=== PATIENT | female | born 1950 | race Caucasian/White ===

== ENCOUNTER → 2017-12-04 | Outpatient (CLI) | payer BC ==
[2017-12-04 12:13] LABS: HEMATOCRIT 47.9 % (36.0-47.0); HEMOGLOBIN 16.1 g/dl (12.0-16.0); MEAN CORPUSCULAR HEMOGLOBIN 32.1 pg (27.0-33.0); MEAN CORPUSCULAR HGB CONC 33.6 g/dl (32.0-36.5); MEAN CORPUSCULAR VOLUME 95.6 fl (80.0-96.0); PLATELET COUNT, AUTOMATED 329 10^3/uL (150-450); RED BLOOD COUNT 5.01 10^6/uL (4.00-5.40); WHITE BLOOD COUNT 9.4 10^3/uL (4.0-10.0)
[2017-12-04 12:25] LABS: AMORPHOUS SEDIMENT MODERATE (NEGATIVE); APPEARANCE, URINE TURBID (CLEAR); BACTERIA, URINE AUTO NEGATIVE (NEGATIVE); BILIRUBIN, URINE AUTO NEGATIVE (NEGATIVE); BLOOD, URINE BLOOD NEGATIVE (NEGATIVE); COLOR, URINE YELLOW (YELLOW); GLUCOSE, URINE (UA) AUTO NEGATIVE (NEGATIVE); KETONE, URINE AUTO NEGATIVE (NEGATIVE); LEUKOCYTE ESTERASE, URINE AUTO 1+ (NEGATIVE); MUCUS, URINE SMALL (NEGATIVE); NITRITE, URINE AUTO NEGATIVE (NEGATIVE); PROTEIN, URINE AUTO NEGATIVE (NEGATIVE); RBC, URINE AUTO 0 /HPF (0-3); SPECIFIC GRAVITY URINE AUTO 1.021 (1.002-1.035); SQUAMOUS EPITHELIAL CELL UR AU 5 /HPF (0-6); UROBILINOGEN, URINE AUTO 0.2 mg/dL (0.0-2.0); WBC, URINE AUTO 0 /HPF (0-3)
[2017-12-04 12:32] LABS: TOTAL 25(OH) VITAMIN D 27.4 NG/ML (30.0-100.0); VITAMIN B12 LEVEL 546 PG/ML (247-911)
[2017-12-04 13:15] LABS: ALBUMIN 4.2 GM/DL (3.2-5.2); ALBUMIN/GLOBULIN RATIO 1.17 (1.00-1.93); ALKALINE PHOSPHATASE 114 U/L (45-117); ALT/SGPT 47 U/L (12-78); ANION GAP 14 MEQ/L (8-16); AST/SGOT 34 U/L (7-37); BILIRUBIN,DIRECT 0.2 MG/DL (0.0-0.2); BILIRUBIN,TOTAL 0.7 MG/DL (0.2-1.0); BLOOD UREA NITROGEN 16 MG/DL (7-18); CALCIUM LEVEL 9.4 MG/DL (8.8-10.2); CARBON DIOXIDE LEVEL 21 MEQ/L (21-32); CHLORIDE LEVEL 102 MEQ/L (98-107); CHOLESTEROL LEVEL 196 MG/DL (<200); CHOLESTEROL RISK RATIO 3.213 (<5); CREATININE FOR GFR 0.76 MG/DL (0.55-1.30); FREE T4 0.98 NG/DL (0.76-1.46); GLOMERULAR FILTRATION RATE > 60.0 (>45); GLUCOSE, FASTING 115 MG/DL (70-100); HDL CHOLESTEROL 61 MG/DL (>40); LDL CHOLESTEROL 80.2 MG/DL (<100); NON-HDL-C 135 MG/DL; POTASSIUM SERUM 4.2 MEQ/L (3.5-5.1); SODIUM LEVEL 137 MEQ/L (136-145); TOTAL PROTEIN 7.8 GM/DL (6.4-8.2); TRIGLYCERIDES LEVEL 274 MG/DL (<150)
== END ==
LOC: M WUC 09:34
DX: M60.80 Other myositis, unspecified site (principal); K44.9 Diaphragmatic hernia without obstruction or gangrene; G47.00 Insomnia, unspecified; E78.5 Hyperlipidemia, unspecified; R32 Unspecified urinary incontinence; E55.9 Vitamin D deficiency, unspecified; R07.9 Chest pain, unspecified

== ENCOUNTER → 2018-06-05 | Outpatient (CLI) | payer BC | LOC: M EKG 12:20 | DX: R07.9 Chest pain, unspecified (principal); I15.8 Other secondary hypertension | CPT/HCPCS: 93005 ==

== ENCOUNTER 2018-08-05 11:05 | Emergency (ER) | payer MEDICARE, BC ==
[2018-08-05] MEDS: NS 1,000 ML IV (13:17)
[2018-08-05] MEDS: PANTOPRAZOLE 40MG INJ (PROTONIX) (C9113) IV (13:18)
[2018-08-05] MEDS: METOCLOPRAMIDE INJ 10MG/2ML VIAL (J2765) IV (13:20)
[2018-08-05] MEDS: GASTROGRAFIN SOLUTION 30ML PO ×2 (13:29→14:08)
[2018-08-05 13:32] LABS: BASO # 0.1 10^3/uL (0.0-0.2); BASO % 0.5 % (0.0-1.0); EOS # 0.1 10^3/uL (0.0-0.50); EOS % 0.5 % (0.0-3.0); HEMATOCRIT 42.2 % (36.0-47.0); HEMOGLOBIN 14.6 g/dl (12.0-15.5); IMMATURE GRANULOCYTE % 0.5 % (0-3.0); LYMPH # 3.7 10^3/uL (1.5-4.5); LYMPH % 28.6 % (24.0-44.0); MEAN CORPUSCULAR HEMOGLOBIN 32.6 pg (27.0-33.0); MEAN CORPUSCULAR HGB CONC 34.6 g/dl (32.0-36.5); MEAN CORPUSCULAR VOLUME 94.2 fl (80.0-96.0); MONO # 1.1 10^3/uL (0.0-0.8); MONO % 8.4 % (0.0-5.0); NEUTROPHILS % 61.5 % (36.0-66.0); PLATELET COUNT, AUTOMATED 343 10^3/uL (150-450); RED BLOOD COUNT 4.48 10^6/uL (4.00-5.40); RED CELL DISTRIBUTION WIDTH 12.8 % (11.5-14.5); WHITE BLOOD COUNT 13.1 10^3/uL (4.0-10.0)
[2018-08-05 13:45] LABS: INR 0.99; PROTHROMBIN TIME 13.2 SECONDS (12.1-14.4)
[2018-08-05 14:03] LABS: ALBUMIN 3.7 GM/DL (3.2-5.2); ALBUMIN/GLOBULIN RATIO 0.86 (1.00-1.93); ALKALINE PHOSPHATASE 106 U/L (45-117); ALT/SGPT 58 U/L (12-78); ANION GAP 11 MEQ/L (8-16); AST/SGOT 43 U/L (7-37); BILIRUBIN,DIRECT < 0.1 MG/DL (0.0-0.2); BILIRUBIN,TOTAL 0.4 MG/DL (0.2-1.0); BLOOD UREA NITROGEN 14 MG/DL (7-18); CALCIUM LEVEL 9.1 MG/DL (8.8-10.2); CARBON DIOXIDE LEVEL 23 MEQ/L (21-32); CHLORIDE LEVEL 104 MEQ/L (98-107); CREATININE FOR GFR 0.83 MG/DL (0.55-1.30); GLOMERULAR FILTRATION RATE > 60.0 (>45); GLUCOSE, FASTING 112 MG/DL (70-100); LIPASE 105 U/L (73-393); POTASSIUM SERUM 4.4 MEQ/L (3.5-5.1); SODIUM LEVEL 138 MEQ/L (136-145)
[2018-08-05] MEDS ORDERED: ISOVUE-370 76% 100ML VIAL (Q9967) As Ordered (14:45)
== END 2018-08-05 15:49 | disposition home or self-care (01) ==
LOC: M ED 11:05
DX: K92.2 Gastrointestinal hemorrhage, unspecified (principal); K64.9 Unspecified hemorrhoids; I10 Essential (primary) hypertension; Z79.899 Other long term (current) drug therapy
CPT/HCPCS: C9113

== ENCOUNTER 2018-10-08 07:38 | Day surgery (SDC) | payer MEDICARE ==
[~2018-10-08] VITALS: Ht 152.4 cm; Wt 76.7 kg
[~2018-10-08 07:38] MED LIST: ANUC25SU PR; ATOR1TAB21; FURO20TA2; LORA0.5T11 PO; LOSA25TA14; NS 1,000 ML IV SCH; OMEP40CA2 PO; VENL75CA47; ZOLO100T PO
[2018-10-08] MEDS ORDERED: ePHEDrine SULFATE 25 MG/5 ML(5MG/ML) SYRINGE As Ordered ONE (08:42)
[2018-10-08] MEDS ORDERED: PROPOFOL 200 MG/20 ML VIAL As Ordered ONE ×2 (08:42→08:43)
[2018-10-08] MEDS ORDERED: LIDOCAINE 2% INJ 100 MG/5 ML SDV (FOR ANES.) As Ordered ONE (08:42)
--- NOTE | 2018-10-08 08:59 | ROOR ---
Patient Name: Divya Bunch Procedure Date: 10/08/2018 8:32 AM Date of : 1950 Age: 68 Room: [facility] Gender: Female Note Status: Finalized Procedure: Total Colonoscopy to Cecum + Biopsy Polypectomy Indications: Rectal bleeding Providers: Avi Kaiser MD Referring MD: Julee Ayon DO Requesting Provider: Medicines: Monitored Anesthesia Care Complications: No immediate complications. Procedure: Pre-Anesthesia Assessment: - The heart rate, respiratory rate, oxygen saturations, blood pressure, adequacy of pulmonary ventilation, and response to care were monitored throughout the procedure. The Colonoscope was introduced through the anus and advanced to the cecum, identified by appendiceal orifice and ileocecal valve. The colonoscopy was performed without difficulty. The patient tolerated the procedure well. The quality of the bowel preparation was excellent. Findings: The perianal and digital rectal examinations were normal. Non-bleeding external and internal hemorrhoids were found during retroflexion. The hemorrhoids were medium-sized and Grade II (internal hemorrhoids that prolapse but reduce spontaneously). Two sessile polyps were found in the transverse colon. The polyps were diminutive in size. These polyps were removed with a jumbo cold forceps. Resection and retrieval were complete. The exam was otherwise without abnormality on direct and retroflexion views. Impression: - Non-bleeding external and internal hemorrhoids. - Two diminutive polyps in the transverse colon, removed with a jumbo cold forceps. Resected and retrieved. - The examination was otherwise normal on direct and retroflexion views. - The exam was otherwise normal to the cecum. Recommendation: - Patient has a contact number available for emergencies. The signs and symptoms of potential delayed complications were discussed with the patient. Return to normal activities tomorrow. Written discharge instructions were provided to the patient. - High fiber diet. - Discharge patient to home. - Continue present medications. - Await pathology results. - Telephone GI clinic for pathology results in 1 week. - Repeat colonoscopy in 5 years for surveillance based on pathology results. - Return to referring physician. - Check Portal Online for Path Results.([email or web address]) Avi Kaiser MD Avi Kaiser MD 10/08/2018 8:58:52 AM This report has been signed electronically. Number of Addenda: 0 Note Initiated On: 10/08/2018 8:32 AM Estimated Blood Loss: Estimated blood loss: none.
[2018-10-08 09:27] VITALS: BP 113/66
== END 2018-10-08 09:27 | disposition home or self-care (01) ==
LOC: M OPP 07:38
PROVIDERS: ATTEND Internal Medicine Gastroenterology
DX: K64.1 Second degree hemorrhoids (principal); D12.3 Benign neoplasm of transverse colon; K62.5 Hemorrhage of anus and rectum; I10 Essential (primary) hypertension; R12 Heartburn; Z79.899 Other long term (current) drug therapy

== ENCOUNTER → 2019-04-07 | Outpatient (REF) | payer MEDICARE ==
[~2019-04-07] MED LIST changes: -LORA0.5T11 PO; +LORA0.5T5 PO; -NS 1,000 ML IV SCH; -OMEP40CA2 PO; +OMEP40CA97 PO
[2019-04-07 13:47] LABS: CK-MB VALUE MASS 1.5 NG/ML (<3.6); CPK CREATINE PHOSPHOKINASE 103 U/L (26-192); MB/CK RELATIVE INDEX 1.46 (< OR =4); TROPONIN I < 0.02 NG/ML (< 0.10)
== END ==
LOC: M LAB REF 12:05
PROVIDERS: ATTEND Internal Medicine
DX: R07.9 Chest pain, unspecified (principal)

== ENCOUNTER → 2019-05-18 | Outpatient (CLI) | payer MEDICARE ==
[~2019-05-18] MED LIST changes: +LORA0.5T11 PO; -LORA0.5T5 PO; +METHACHOLINE KIT (J7674) INH ONE; +OMEP40CA2 PO; -OMEP40CA97 PO
--- NOTE | 2019-05-18 11:13 | PFTRPT ---
Height: 60.50 Inches Weight: 168.00 Lbs BSA: 1.74 Diagnosis: R05 DATE OF PROCEDURE: 05/18/2019 ORDERED BY: Julee Ayon DO INTERPRETATION: Under protocol, methacholine was administered. Even after a maximal dose of 25 mg (188.75 CDUs), no provocation dose ever achieved. IMPRESSION: Negative methacholine challenge study. MTDD
== END ==
LOC: M CARPUL 09:46
PROVIDERS: ATTEND Internal Medicine
DX: R05 Cough (principal)
CPT/HCPCS: 94070; 95070; J7674

== ENCOUNTER → 2019-07-12 | Outpatient (CLI) | payer MEDICARE ==
[~2019-07-12] MED LIST changes: -METHACHOLINE KIT (J7674) INH ONE; -OMEP40CA2 PO; +OMEP40CA97 PO
--- NOTE | 2019-07-13 08:35 | REP ---
Right wrist series: Four views. History: Contusion. Findings: Four views of the right wrist demonstrate a comminuted impacted fracture of the distal radius. Fracture is interarticular. Impaction is most pronounced along the dorsal aspect producing mild apex volar angulation. There is diffuse soft tissue swelling. No carpal or metacarpal fracture is seen. There is an old healed fracture of the first metacarpal. Osteoarthritis is seen at the first ASSISTED and first MCP articulations. Electronically Signed by Sam Moses MD 07/12/2019 12:55 P
--- NOTE | 2019-07-13 08:35 | REP ---
Right hand series: Four views. History: Contusion. Findings: Four views right hand demonstrate a comminuted impacted fracture of the distal radius. There is diffuse soft tissue swelling. No ulnar fracture is visible. No carpal or metacarpal fractures seen. There is old post-traumatic deformity date at the proximal end of the first metacarpal and there is osteoarthritis at the first metacarpal carpal joint and at the first MCP joint. Impression: Comminuted impacted distal radial fracture. Diffuse swelling. 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 Osteoarthritis. Electronically Signed by Sam Moses MD 07/12/2019 12:54 P
== END ==
LOC: M WUC 12:34
PROVIDERS: ATTEND Physician Assistant
DX: S52.351A Displaced comminuted fracture of shaft of radius, right arm, initial encounter for closed fracture (principal); M19.041 Primary osteoarthritis, right hand